=== PATIENT | male | born 1945 | race Caucasian/White ===

== ENCOUNTER → 2022-05-02 | Outpatient (CLI) | payer MEDICARE | END | disposition home or self-care (01) | LOC: RAH 09:09 | PROVIDERS: ATTEND Orthopaedic Surgery Sports Medicine | DX: S83.242A Other tear of medial meniscus, current injury, left knee, initial encounter (principal); S83.282A Other tear of lateral meniscus, current injury, left knee, initial encounter; M17.12 Unilateral primary osteoarthritis, left knee; M25.462 Effusion, left knee; M85.68 Other cyst of bone, other site; X58.XXXA Exposure to other specified factors, initial encounter; Y93.89 Activity, other specified; Y92.89 Other specified places as the place of occurrence of the external cause; Y99.8 Other external cause status | CPT/HCPCS: 73721 ==

== ENCOUNTER → 2022-05-16 | Outpatient (CLI) | payer MEDICARE | END | disposition home or self-care (01) | LOC: RAH 14:23 | PROVIDERS: ATTEND Orthopaedic Surgery Sports Medicine | DX: M17.12 Unilateral primary osteoarthritis, left knee (principal); M11.262 Other chondrocalcinosis, left knee; M25.462 Effusion, left knee; M25.762 Osteophyte, left knee; M16.12 Unilateral primary osteoarthritis, left hip; M19.072 Primary osteoarthritis, left ankle and foot | CPT/HCPCS: 73700 ==

== ENCOUNTER 2022-06-03 09:00 | Observation (INO) | payer MEDICARE ==
[~2022-06-03] VITALS: Ht 175.3 cm; Wt 83.0 kg
[2022-06-03 10:07] LABS: BASOPHILS % (AUTO) 1.3 % (0.0-5.0); EOSINOPHILS % (AUTO) 9.2 % (0.0-8.0); HEMATOCRIT 49.4 % (42-54); LYMPHOCYTES % (AUTO) 21.4 % (21.0-51.0); MEAN CORPUSCULAR HEMOGLOBIN 29.3 pg (27.0-33.0); MEAN CORPUSCULAR VOLUME 88.7 fL (79-99); MONOCYTES % (AUTO) 11.9 % (3.0-13.0); PLATELET COUNT (AUTO) 211 K/uL (130-400); RED BLOOD CELL COUNT(AUTO) 5.57 MIL/uL (4.50-6.20); RED CELL DISTRIBUTION WIDTH 13.3 % (11.0-15.5); WHITE BLOOD COUNT (AUTO) 8.7 K/uL (4.8-10.8)
[2022-06-03 10:19] LABS: INR 1.03 (0.85-1.15); PROTHROMBIN TIME 11.2 SEC (9.6-11.6)
[2022-06-03 10:20] LABS: PARTIAL THROMBOPLASTIN TIME 27.7 SEC (26.3-35.5)
[2022-06-03 10:23] LABS: CREATININE 1.3 mg/dL (0.5-1.5); POTASSIUM 4.4 mmol/L (3.5-5.1)
[2022-06-03 10:37] LABS: APPEARANCE,URINE CLEAR (CLEAR); BILIRUBIN,URINE NEGATIVE (NEGATIVE); COLOR,URINE YELLOW (YELLOW); GLUCOSE, URINE (UA) 150 mg/dL (NEGATIVE); KETONES,URINE NEGATIVE (NEGATIVE); LEUKOCYTE ESTERASE ,URINE NEGATIVE Leu/uL (NEGATIVE); NITRATE,URINE NEGATIVE (NEGATIVE); OCCULT BLOOD,URINE NEGATIVE (NEGATIVE); PH,URINE 6.5 (5.0-8.0); PROTEIN,URINE 30 mg/dL (NEGATIVE); UROBILINOGEN,URINE 0.2 mg/dL (0.2-1.0)
[2022-06-03 11:22] LABS: BACTERIA,URINE RARE /HPF (None Seen); MUCUS,URINE RARE LPF (None Seen); RBC,URINE 0-1 /HPF (0-1); WBC,URINE 0-1 /HPF (0-1)
[2022-06-03 13:36] VITALS: BP 149/68
[2022-06-03] MEDS ORDERED: LOSA100T58 PO (13:58)
[2022-06-03] MEDS ORDERED: VITAD50000 PO (13:58)
[2022-06-03] MEDS ORDERED: POTA10CA44 PO (13:58)
[2022-06-03] MEDS ORDERED: AMLO-258 PO (13:58)
[2022-06-06] VITALS (26 sets, daily range): BP systolic 103–148; BP diastolic 53–75
[2022-06-06] MEDS ORDERED: PHENYLEPHRINE HCL 10 MG/ML 1ML VIAL IV ONE (05:13)
[2022-06-06] MEDS ORDERED: ROPIVACAINE 0.5% 5MG/ML 30ML IJ ONE (05:13)
[2022-06-06] MEDS ORDERED: EPINEPHRINE 1 MG/ML 30ML VIAL IJ ONE (05:46)
[2022-06-06] MEDS: CEFAZOLIN SODIUM 1 GM VIAL IVP SCH ×4 (06:00→23:28)
[2022-06-06] MEDS ORDERED: TRANEXAMIC ACID 1000MG/10ML ONE ×2 (06:08→07:47)
[2022-06-06] MEDS ORDERED: LACTATED RINGERS 1000ML 1,000 ML IV ONE (07:02)
[2022-06-06] MEDS ORDERED: SUCCINYLCHOLINE 200MG/10ML SYR ONE (07:06)
[2022-06-06] MEDS ORDERED: GLYCOPYRROLATE 1 MG/5 ML SYRINGE ONE (07:06)
[2022-06-06] MEDS ORDERED: MIDAZOLAM HCL 1 MG/ML 2ML VIAL ONE (07:06)
[2022-06-06] MEDS ORDERED: PROPOFOL 10 MG/ML 20ML VIAL IV ONE (07:06)
[2022-06-06] MEDS ORDERED: ROCURONIUM 10MG/1ML SYR 10 MG/ML ML ONE (07:07)
[2022-06-06] MEDS ORDERED: FENTANYL CITRATE PF 50 MCG/1 ML 2ML VIAL ONE (07:07)
[2022-06-06] MEDS ORDERED: LIDOCAINE PF 100MG/5ML (2%) SYRINGE 5ML ONE (07:08)
[2022-06-06] MEDS ORDERED: ONDANSETRON 4MG INJ ONE (08:01)
[2022-06-06] MEDS ORDERED: NEOSTIGMINE 5MG/5ML SYR IV ONE (10:00)
[2022-06-06] MEDS: 0.9%NACL 1000ML 1,000 ML IV SCH ×2 (10:30→20:09)
[2022-06-06] MEDS ORDERED: TRANEXAMIC ACID 1000MG/10ML IV ONE (10:30)
[2022-06-06] MEDS ORDERED: POTASSIUM CHLORIDE 20MEQ/100ML 100 ML IV PRN (10:30)
[2022-06-06] MEDS ORDERED: LIDOCAINE HCL-MPF 1% 2ML VIAL IV PRN (10:30)
[2022-06-06] MEDS ORDERED: POTASSIUM CHLORIDE 10% ELIXIR 20 MEQ/15 ML UDCUP PO PRN (10:30)
[2022-06-06] MEDS ORDERED: HYDROCODONE/ACETAMINOPHEN 5/325 MG TAB PO PRN (10:30)
[2022-06-06] MEDS: ACETAMINOPHEN 500 MG TABLET PO SCH ×2 (10:30→18:05)
[2022-06-06] MEDS ORDERED: ONDANSETRON 4MG INJ IVP PRN (10:30)
[2022-06-06] MEDS ORDERED: MEPERIDINE-PF 25 MG/ML SYG ONE ×2 (10:33→10:42)
[2022-06-06] MEDS: HYDROCODONE/ACETAMINOPHEN 10/325 MG TAB PO PRN ×3 (12:10→20:10)
[2022-06-06] MEDS: MORPHINE 4 MG SYG IVP PRN (14:28)
[2022-06-06] MEDS: CELECOXIB 200 MG CAP PO SCH (20:09)
[2022-06-07] VITALS: BP 130/61
[2022-06-07] MEDS: HYDROCODONE/ACETAMINOPHEN 10/325 MG TAB PO PRN ×4 (01:08→16:11)
[2022-06-07] MEDS: ACETAMINOPHEN 500 MG TABLET PO SCH ×2 (01:09→10:51)
[2022-06-07 04:00] VITALS: BP 132/63
[2022-06-07 04:21] LABS: HEMATOCRIT 45.7 % (42-54); MEAN CORPUSCULAR HGB CONC 32.6 g/dL (32.0-36.0); MEAN CORPUSCULAR VOLUME 89.1 fL (79-99); RED BLOOD CELL COUNT(AUTO) 5.13 MIL/uL (4.50-6.20); RED CELL DISTRIBUTION WIDTH 13.5 % (11.0-15.5); WHITE BLOOD COUNT (AUTO) 12.2 K/uL (4.8-10.8)
[2022-06-07 04:31] LABS: CREATININE 1.1 mg/dL (0.5-1.5); POTASSIUM 3.5 mmol/L (3.5-5.1)
[2022-06-07] MEDS: MORPHINE 4 MG SYG IVP PRN ×3 (04:48→12:45)
[2022-06-07] MEDS: KCL 20 MEQ ERTAB PO PRN ×2 (05:22→08:31)
[2022-06-07] MEDS: 0.9%NACL 1000ML 1,000 ML IV SCH (06:30)
[2022-06-07 07:30] VITALS: BP 102/48
[2022-06-07] MEDS: CELECOXIB 200 MG CAP PO SCH (08:29)
[2022-06-07] MEDS ORDERED: POLYETHYLENE GLYCOL 3350 17 GM POWD.PACK PO SCH (09:00)
[2022-06-07] MEDS ORDERED: ASPIRIN 325MG EC TAB PO SCH (09:00)
[2022-06-07 11:00] VITALS: BP 167/63
[2022-06-07 16:00] VITALS: BP 127/68
[2022-06-07] MEDS ORDERED: ASPI-891 PO (16:48)
[2022-06-07] MEDS ORDERED: POTASSIUM CHLORIDE 10MEQ SR TAB PO SCH (21:00)
[2022-06-08] MEDS ORDERED: AMLODIPINE 5 MG TAB PO SCH (09:00)
[2022-06-08] MEDS ORDERED: LOSARTAN 100 MG TABLET PO SCH (09:00)
[2022-06-09] MEDS ORDERED: BISACODYL 10 MG SUPP.RECT RC PRN (10:30)
[2022-06-14] MEDS ORDERED: ERGOCALCIFEROL (VITAMIN D2) 50,000 UNIT CAPSULE PO SCH (09:00)
== END 2022-06-07 18:14 | disposition home or self-care (01) ==
LOC: DAHIP 06-06 06:22 → EDSTATUS 06-06 09:00 → 4CH 06-06 11:42
PROVIDERS: ADMIT Orthopaedic Surgery Sports Medicine; ATTEND Orthopaedic Surgery Sports Medicine
DX: M17.12 Unilateral primary osteoarthritis, left knee (principal); Z20.822 Contact with and (suspected) exposure to COVID-19; I10 Essential (primary) hypertension; K21.9 Gastro-esophageal reflux disease without esophagitis; Z79.82 Long term (current) use of aspirin; Z79.899 Other long term (current) drug therapy
CPT/HCPCS: 80048 ×2; 85025; 85610; 85730; 87426; 81001; 36415 ×2; 93005; 27447; 96374; 96376 ×2; 96375; 76942; 64447; 97161; 97530 ×3; 97039 ×2; 85027; 97116 ×2; A6260; G0378 ×29; G0379; A4600; J7120; J3010; J0690 ×3; J3490 ×2; J0330; J2710; J2001; J2250; J2704; J2405; J2270 ×5; J2175 ×2; J2795; J2370; A6223; A4649 ×3; A4930; C1776; A5120; A4215; A4223; A4222; A4221; A4663; J0171

== ENCOUNTER → 2024-06-24 | Outpatient (CLI) | payer MEDICARE ==
[~2024-06-24] MED LIST: AMLO-258 PO; ASPI-891 PO; LOSA100T59 PO; POTA10CA95 PO; VITAD50000 PO
--- NOTE | 2024-06-24 15:34 | HMCIMG ---
CHEST 2VWS HISTORY: Preop COMPARISON: None FINDINGS: Frontal and lateral projections of the chest were obtained. There is no acute pulmonary infiltrates or failure. The heart is not enlarged. Aortic calcifications are seen. Degenerative changes are seen of the thoracolumbar spine. IMPRESSION: 1. No acute pulmonary infiltrates.
--- NOTE | 2024-06-25 06:55 | EKG ---
[facility] Test Date: 2024-06-24 Test Time: 15:07:20 Pat Name: BEATRICE KING Department: [facility] Room: Gender: Male [employer]: [id number] : 1945 Requested By: NAOMIE MARX Order Number: [id number] Reading MD: Measurements Intervals [place] Rate: 49 P: 50 UT: 191 QRS: -48 QRSD: 99 T: 58 QT: 426 QTc: 386 Interpretive Statements Sinus bradycardia Left anterior fascicular block No previous ECG available for comparison Please click the below link to view image of tracing.
== END | disposition home or self-care (01) ==
LOC: RAH 14:37
PROVIDERS: ATTEND Family Medicine
DX: Z01.818 Encounter for other preprocedural examination (principal); R00.1 Bradycardia, unspecified; I44.4 Left anterior fascicular block; I70.0 Atherosclerosis of aorta; M47.815 Spondylosis without myelopathy or radiculopathy, thoracolumbar region
CPT/HCPCS: 71046; 93005

== ENCOUNTER → 2024-06-25 | Outpatient (CLI) | payer MEDICARE ==
[2024-06-25 07:57] LABS: BASOPHILS # (AUTO) 0.15 K/uL (0.00-0.20); BASOPHILS % (AUTO) 0.9 % (0.0-5.0); EOSINOPHILS # (AUTO) 0.03 K/uL (0.00-0.70); EOSINOPHILS % (AUTO) 0.2 % (0.0-8.0); IMMATURE GRANULOCYTE ABSOLUTE 0.83 K/uL (0-1); LYMPHOCYTES # (AUTO) 1.5 K/uL (1.0-4.8); LYMPHOCYTES % (AUTO) 8.9 % (21.0-51.0); MEAN CORPUSCULAR HEMOGLOBIN 30.1 pg (27.0-33.0); MEAN CORPUSCULAR HGB CONC 33.5 g/dL (32.0-36.0); MEAN CORPUSCULAR VOLUME 89.7 fL (79-99); MONOCYTES # (AUTO) 1.1 K/uL (0.1-1.0); MONOCYTES % (AUTO) 6.9 % (3.0-13.0); NEUTROPHILS # (AUTO) 12.8 K/uL (1.8-7.7); PLATELET COUNT (AUTO) 273 K/uL (130-400); RED BLOOD CELL COUNT(AUTO) 6.02 MIL/uL (4.50-6.20); RED CELL DISTRIBUTION WIDTH 13.5 % (11.0-15.5); WHITE BLOOD COUNT (AUTO) 16.4 K/uL (4.8-10.8)
[2024-06-25 08:07] LABS: INR 1.08 (0.85-1.15); PROTHROMBIN TIME 11.6 SEC (9.6-11.6)
[2024-06-25 08:09] LABS: PARTIAL THROMBOPLASTIN TIME 24.2 SEC (26.3-35.5)
[2024-06-25 08:16] LABS: ALBUMIN 3.8 g/dL (3.5-5.0); BILIRUBIN,TOTAL 0.9 mg/dL (0.2-1.0); CREATININE 1.4 mg/dL (0.5-1.3); POTASSIUM 5.7 mmol/L (3.5-5.1); TOTAL PROTEIN, SERUM 7.3 g/dL (6.0-8.3)
== END | disposition home or self-care (01) ==
LOC: LAB 07:18
PROVIDERS: ATTEND Family Medicine
DX: Z01.812 Encounter for preprocedural laboratory examination (principal); I10 Essential (primary) hypertension; I70.0 Atherosclerosis of aorta
CPT/HCPCS: 36415; 80053; 85025; 85610; 85730